=== PATIENT | female | born 1980 | race American Indian/Alaskan Native ===

== ENCOUNTER 2017-01-15 22:28 | Emergency (ER) | payer MEDICAID ==
[2017-01-15 23:24] LABS: Basophils % (Auto) 0.9 % (0.0-1.8); Eosinophils % (Auto) 0.2 % (0.0-4.3); Hematocrit 40.9 % (30.3-42.9); Hemoglobin 13.2 gm/dl (10.1-14.3); Mean Corpuscular HGB Conc 32 % (30-34); Mean Corpuscular Volume 71 fl (79-97); Platelet Count 269 K/mm3 (140-440); Red Blood Count 5.75 M/mm3 (3.65-5.03); Red Cell Distribution Width 15.6 % (13.2-15.2); White Blood Count 8.1 K/mm3 (4.5-11.0)
[2017-01-15 23:38] LABS: Mean Corpuscular Hemoglobin 23 pg (28-32)
[2017-01-15 23:43] LABS: Alanine Aminotransferase 11 units/L (7-56); Albumin 4.1 g/dL (3.9-5); Albumin/Globulin Ratio 1.1 %; Alkaline Phosphatase 79 units/L (35-129); Anion Gap 18 mmol/L; BUN/Creatinine Ratio 18.33; Blood Urea Nitrogen 11 mg/dL (7-17); Calcium 9.2 mg/dL (8.4-10.2); Carbon Dioxide 22 mmol/L (22-30); Chloride 98.1 mmol/L (98-107); Glucose 153 mg/dL (65-100); Lipase 19 units/L (13-60); Potassium 3.3 mmol/L (3.6-5.0); Sodium 135 mmol/L (137-145)
[2017-01-15 23:50] LABS: Bacteria,Urine 1+ /HPF (Negative); Bilirubin,Urine NEG (Negative); Blood,Urine MOD (Negative); Ketones,Urine NEG (Negative); Leukocyte Esterase,Urine LG (Negative); Mucus,Urine FEW /HPF; Nitrite,Urine NEG (Negative); Protein,Urine <15 mg/dL mg/dL (Negative); Urobilinogen,Urine < 2.0 mg/dL (<2.0)
[2017-01-16] MEDS ORDERED: MACROBID PO ONE (02:44)
[2017-01-16] MEDS ORDERED: K-DUR PO ONE (02:52)
[2017-01-16] MEDS ORDERED: PERCOCET 5/325 PO ONE (02:52)
[2017-01-16 05:08] VITALS: BP 130/96
--- NOTE | 2017-01-16 05:13 | Ultrasound Report ---
FINAL REPORT EXAM: US PELVIS DUPLEX DOPPLER COMP HISTORY: pelvic pain COMPARISONS: None. FINDINGS: Transabdominal grayscale, color and spectral Doppler ultrasound evaluation of the pelvis Anteverted uterus measures 9.7 x 4.2 x 5.2 cm in. Myometrial echotexture is normal. Slightly heterogeneous endometrium with thickness of approximately 10 millimeters. No free fluid in the pelvis. The ovaries demonstrate an unremarkable sonographic appearance and measure 2.9 x 3 x 2.2 cm on the right and 3.4 x 3 x 3.3 cm on the left. IMPRESSION: Unremarkable pelvic ultrasound.
--- NOTE | 2017-01-16 05:14 | Ultrasound Report ---
FINAL REPORT EXAM: US TRANSVAGINAL HISTORY: pelvic pain COMPARISONS: None. FINDINGS: Transvaginal grayscale, color and spectral Doppler ultrasound evaluation of the pelvis Anteverted uterus measures 9.7 x 4.2 x 5.2 cm in. Myometrial echotexture is normal. Slightly heterogeneous endometrium with thickness of approximately 10 millimeters. No free fluid in the pelvis. The ovaries demonstrate an unremarkable sonographic appearance and measure 2.9 x 3 x 2.2 cm on the right and 3.4 x 3 x 3.3 cm on the left. IMPRESSION: Unremarkable pelvic ultrasound.
--- NOTE | 2017-01-16 05:49 | Emergency Department Report ---
HPI - General Chief Complaint: Abdominal Pain Time Seen by Provider: 01/16/17 02:43 - HPI HPI: This is a 36 year-old female presents to the emergency department with a complaint of a one-week history of some pelvic discomfort, vaginal discharge and some lesions to the inner thigh, labia and above the vagina. She has a past medical history of CVA, migraine headaches, hypertension. She says that she has a previous history of trichomoniasis. She is sexually active and does not always use protection. She has a psychiatric history of bipolar disorder. She has a surgical history of and tubal ligation. Her [facility] D[employer] MANAGER is Dr. Radha Vasquez and her PCP is a Dr. Celeste. She has not seen them regarding her symptoms. No recent travel or sick contacts at home. ED Past Medical Hx - Past Medical History Hx Hypertension: Yes Hx CVA: Yes (2009) Hx Headaches / Migraines: Yes Hx Seizures: Yes Hx Psychiatric Treatment: Yes (BIPOLAR) - Surgical History Hx Cholecystectomy: Yes Additional Surgical History: ,TUBAL LIGATION - Social History Smoking Status: Current Every Day Smoker Substance Use Type: None - Medications Home Medications: Home Medications Medication Instructions Recorded Confirmed Last Taken Type Atenolol [Tenormin] 25 mg PO DAILY #30 tab 11/13/13 04/20/14 04/19/14 Rx Divalproex [Matthew Ortiz] 1,000 mg PO QHS #30 tablet 11/13/13 04/20/14 Rx SUMAtriptan SUCCINATE [Imitrex] 25 mg PO Q6H PRN #30 tab 11/24/13 04/20/1403/30 Rx Cyclobenzaprine [Flexeril 10mg] 10 mg PO TID PRN #20 tablet 04/20/14 Unknown Rx Penicillin Vk [Veetids TAB] 500 mg PO QID #40 tablet 08/14/14 Unknown Rx traMADol [Ultram 50 MG tab] 50 mg PO Q6HR PRN #20 tablet 08/14/14 Unknown Rx Nitrofurantoin [place]/M-Cryst 100 mg PO Q12HR #14 capsule 01/16/17 Unknown Rx [Macrobid CAP] metroNIDAZOLE [Flagyl] 500 mg PO Q12HR #14 tab 01/16/17 Unknown Rx traMADol [Ultram 50 MG tab] 50 mg PO Q6H PRN #8 tablet 01/16/17 Unknown Rx ED Review of Systems ROS: Stated complaint: ABD PAIN Other details as noted in HPI Comment: All other systems reviewed and negative Constitutional: denies: chills, fever Eyes: denies: eye pain, eye discharge, vision change ENT: denies: ear pain, throat pain Respiratory: denies: cough, shortness of breath, wheezing Cardiovascular: denies: chest pain, palpitations Gastrointestinal: denies: diarrhea, constipation Genitourinary: dysuria, discharge Musculoskeletal: denies: joint swelling, arthralgia Skin: denies: rash, lesions Neurological: denies: headache, weakness, paresthesias Physical Exam - Physical Exam Vital Signs: Vital Signs 01/15/17 01/16/17 01/16/17 22:32 02:50 03:50 Temperature 98 F Pulse Rate 85 Respiratory 18 20 18 Rate Blood Pressure 145/89 Blood Pressure [Right] O2 Sat by Pulse 99 Oximetry 01/16/17 05:03 Temperature 98.3 F Pulse Rate 80 Respiratory 20 Rate Blood Pressure Blood Pressure 130/96 [Right] O2 Sat by Pulse 99 Oximetry Physical Exam: GENERAL: The patient is well-developed well-nourished. HENT: Normocephalic. Atraumatic. Patient has moist mucous membranes. EYES: Extraocular motions are intact. Pupils equal reactive to light bilaterally. NECK: Supple. Trachea is midline. CHEST/LUNGS: Clear to auscultation. There is no respiratory distress noted. HEART/CARDIOVASCULAR: Regular. There is no tachycardia. There is no gallop rub or murmur. ABDOMEN: Abdomen is soft, nontender. Patient has normal bowel sounds. There is no abdominal distention. SKIN: Skin is warm and dry. There is a moderate sized papules seen to the left inner thigh. There is a single papule seen to the mons. It possibly could be a condyloma. : There is a very small amount of thin white discharge seen in the vaginal vault. NEURO: The patient is awake, alert, and oriented. The patient is cooperative. The patient has no focal neurologic deficits. The patient has normal speech and gait. MUSCULOSKELETAL: There is no tenderness or deformity. There is no limitation range of motion. There is no evidence of acute injury. ED Course Vital Signs 01/15/17 01/16/17 01/16/17 22:32 02:50 03:50 Temperature 98 F Pulse Rate 85 Respiratory 18 20 18 Rate Blood Pressure 145/89 Blood Pressure [Right] O2 Sat by Pulse 99 Oximetry 01/16/17 05:03 Temperature 98.3 F Pulse Rate 80 Respiratory 20 Rate Blood Pressure Blood Pressure 130/96 [Right] O2 Sat by Pulse 99 Oximetry ED Medical Decision Making - Lab Data Result diagrams: 01/15/17 23:06 01/15/17 23:06 - Radiology Data Radiology results: report reviewed EXAM: US TRANSVAGINAL HISTORY: pelvic pain COMPARISONS: None. FINDINGS: Transvaginal grayscale, color and spectral Doppler ultrasound evaluation of the pelvis Anteverted uterus measures 9.7 x 4.2 x 5.2 cm in. Myometrial echotexture is normal. Slightly heterogeneous endometrium with thickness of approximately 10 millimeters. No free fluid in the pelvis. The ovaries demonstrate an unremarkable sonographic appearance and measure 2.9 x 3 x 2.2 cm on the right and 3.4 x 3 x 3.3 cm on the left. IMPRESSION: Unremarkable pelvic ultrasound. - Medical Decision Making This is a 36-year-old female presents to the emergency department with complaint of some pain in the vagina as well as in the pelvis and some lesions to the inner thigh and around the vagina as well. Physical exam she does not appear to be in any acute distress. Vital signs stable. Pelvic ultrasound does not show any torsion and is a unremarkable pelvic ultrasound. I did see the lesion to the inner thigh and another just above the vagina on the mons that do not appear as any particular obvious rash or condition but there is possibility of condyloma and the patient was encouraged to follow up with the OB /[facility]HA[facility] WORKER as well as her PCP to make sure that it is not something more concerning or malignant. Pelvic exam was done and wet prep was sent that was positive for Trichomonas. The patient also has a significant urinary tract infection. She was treated with Macrobid for that. She was treated with Flagyl for Trichomonas and understands its side effect with alcohol consumption. Otherwise the patient appears safe for discharge home at this time. She will be notified if her gonorrhea and/or chlamydia is positive and will be started on more antibiotics if necessary. She has been encouraged to return to the ER for any worsening of her symptoms or any acute distress. - Differential Diagnosis Trichomonas, UTI, ovarian torsion, ovarian cysts, fibroids, Critical Care Time: No Critical care attestation.: If time is entered above; I have spent that time in minutes in the direct care of this critically ill patient, excluding procedure time. ED Disposition Clinical Impression: Trichomonas vaginalis infection, Vaginal pain, Pelvic pain UTI (urinary tract infection) Qualifiers: Urinary tract infection type: acute cystitis Hematuria presence: without hematuria Qualified Code(s): N30.00 - Acute cystitis without hematuria Disposition: TO HOME OR SELFCARE Is pt being admited?: No Condition: Stable Instructions: Trichomoniasis (ED), Urinary Tract Infection in Women (ED), Abdominal Pain (ED) Additional Instructions: Please follow-up with your primary care physician and [facility]. Return to the emergency Department with any worsening of her symptoms or any acute distress. You have been prescribed a medication that is sedating and therefore should not be taken prior to driving, working, and responsible for children and in no way should be mixed with alcohol of any quantity. The antibiotic that you have been prescribed for your Trichomonas infection is called Flagyl/metronidazole and it has a severe reaction to alcohol. Therefore do not drink any alcohol for up to 3 days after finishing this antibiotic, and especially during the antibiotic, or else she will have severe abdominal pain, nausea, vomiting. Prescriptions: metroNIDAZOLE [Flagyl] 500 mg PO Q12HR #14 tab Nitrofurantoin [place]/M-Cryst [Macrobid CAP] 100 mg PO Q12HR #14 capsule traMADol [Ultram 50 MG tab] 50 mg PO Q6H PRN #8 tablet PRN Reason: Pain Referrals: [facility] [Primary Care Provider] - 3-5 Days [facility] [Provider Group] - 3-5 Days [facility] [Provider Group] - 3-5 Days [facility] [Provider Group] - 3-5 Days Forms: Work/School Release Form(ED) Time of Disposition: 06:46
== END 2017-01-16 07:00 | disposition home or self-care (01) ==
LOC: ED 22:28
DX: A59.01 Trichomonal vulvovaginitis (principal); R10.2 Pelvic and perineal pain; N30.00 Acute cystitis without hematuria; I10 Essential (primary) hypertension; I63.9 Cerebral infarction, unspecified; R56.9 Unspecified convulsions; G43.909 Migraine, unspecified, not intractable, without status migrainosus; F17.200 Nicotine dependence, unspecified, uncomplicated; Z98.890 Other specified postprocedural states
CPT/HCPCS: 36415; 76830; 80053; 81001; 81025; 83690; 85025; 87210; 87591; 93975

== ENCOUNTER 2018-05-03 15:26 | Emergency (ER) | payer MEDICAID ==
[2018-05-03 15:37] VITALS: BP 153/85
[2018-05-03 15:59] LABS: Bacteria,Urine 1+ /HPF (Negative); Bilirubin,Urine NEG (Negative); Blood,Urine NEG (Negative); Color,Urine Straw (Yellow); Protein,Urine <15 mg/dL mg/dL (Negative); Urobilinogen,Urine < 2.0 mg/dL (<2.0)
[2018-05-03 16:04] LABS: HCG Qualitative,Urine Negative (Negative)
--- NOTE | 2018-05-03 17:08 | Emergency Department Report ---
ED Abdominal Pain HPI - General Chief Complaint: Abdominal Pain Stated Complaint: ABD PAIN/DISCHARGE Time Seen by Provider: 05/03/18 17:05 Source: patient, family Mode of arrival: Ambulatory Limitations: No Limitations - History of Present Illness Initial Comments: This is 31-year-old female here reports lower abdominal pain that radiates to her back. Patient also complained of frequent urination and vaginal discharge and she says she thinks she has a STD. She is complaining that she also has pain inside her vagina. She reports nausea. Blood glucose in triage is 152 she is a diabetic. Patient has a history of CVA, diet controlled diabetes, migraine headache, hypertension and she has bipolar disorder and on treatment for this. She has a history of seizure disorder, gallbladder removed, tubal ligation and . She has a physician a history of herpes. Denies any fever or chills. Last menstrual period was 04/16/2018. She is also complaining of lower back pain. Denies any chest pain or shortness of breath. MD Complaint: abdominal pain, other (low back pain) -: Last night Location: suprapubic Radiation: none Migration to: no migration Severity: severe Severity scale (0 -10): 8 Quality: cramping Consistency: constant Improves With: nothing Worsens With: nothing Associated Symptoms: nausea, dysuria, other (urine frequency). denies: vomiting, diarrhea, fever, chills, constipation, hematemesis, hematochezia, melena, hematuria, anorexia, syncope - Related Data LMP Date: 04/16/18 Previous Rx's Medication Instructions Recorded Last Taken Type Atenolol [Tenormin] 25 mg PO DAILY #30 tab 11/13/13 04/19/14 Rx Divalproex [Matthew Ortiz] 1,000 mg PO QHS #30 tablet 11/13/13 04/19/14 Rx SUMAtriptan SUCCINATE [Imitrex] 25 mg PO Q6H PRN #30 tab 11/24/13 03/30/14 Rx Cyclobenzaprine [Flexeril 10mg] 10 mg PO TID PRN #20 tablet 04/20/14 Unknown Rx Penicillin Vk [Veetids TAB] 500 mg PO QID #40 tablet 08/14/14 Unknown Rx traMADol [Ultram 50 MG tab] 50 mg PO Q6HR PRN #20 tablet 08/14/14 Unknown Rx Nitrofurantoin [place]/M-Cryst 100 mg PO Q12HR #14 capsule 01/16/17 Unknown Rx [Macrobid CAP] metroNIDAZOLE [Flagyl] 500 mg PO Q12HR #14 tab 01/16/17 Unknown Rx traMADol [Ultram 50 MG tab] 50 mg PO Q6H PRN #8 tablet 01/16/17 Unknown Rx Doxycycline [Vibramycin CAP] 100 mg PO Q12HR 7 Days #14 capsule 05/03/18 Unknown Rx metroNIDAZOLE [Flagyl] 500 mg PO Q12HR 7 Days #14 tab 05/03/18 Unknown Rx traMADol [Ultram 50 MG tab] 50 mg PO Q6HR PRN #12 tablet 05/03/18 Unknown Rx Allergies Allergy/AdvReac Type Severity Reaction Status Date / Time ibuprofen [From Motrin] Allergy Unknown Verified 04/20/14 21:17 naproxen [From Naprosyn] Allergy Unknown Verified 04/20/14 21:17 NSAIDS (Non-Steroidal AdvReac Unknown Verified 04/20/14 21:17 Anti-Inflamma ED Review of Systems ROS: Stated complaint: ABD PAIN/DISCHARGE Other details as noted in HPI Constitutional: denies: chills, fever ENT: denies: ear pain, throat pain, congestion Respiratory: denies: cough, shortness of breath, wheezing Gastrointestinal: nausea. denies: abdominal pain, vomiting, diarrhea, constipation, hematemesis, melena, hematochezia Genitourinary: dysuria, frequency. denies: urgency, hematuria, discharge, abnormal menses, dyspareunia Musculoskeletal: back pain. denies: joint swelling, arthralgia, myalgia Skin: denies: rash Neurological: denies: headache, weakness, numbness, paresthesias, confusion, abnormal gait, vertigo ED Past Medical Hx - Past Medical History Previous Medical History?: Yes Hx Hypertension: Yes Hx CVA: Yes (2009) Hx Diabetes: Yes (diet controlled) Hx Headaches / Migraines: Yes Hx Seizures: Yes Hx Psychiatric Treatment: Yes (BIPOLAR) - Surgical History Past Surgical History?: Yes Hx Cholecystectomy: Yes Additional Surgical History: ,TUBAL LIGATION - Family History Family history: hypertension - Social History Smoking Status: Current Every Day Smoker Substance Use Type: None - Medications Home Medications: Home Medications Medication Instructions Recorded Confirmed Last Taken Type Atenolol [Tenormin] 25 mg PO DAILY #30 tab 11/13/13 04/20/14 04/19/[address] [[place] Dr] 1,000 mg PO QHS #30 tablet 11/13/13 04/20/14 04/19/14 Rx SUMAtriptan SUCCINATE [Imitrex] 25 mg PO Q6H PRN #30 tab 11/24/13 04/20/14 03/30/14 Rx Cyclobenzaprine [Flexeril 10mg] 10 mg PO TID PRN #20 tablet 04/20/14 Unknown Rx Penicillin Vk [Veetids TAB] 500 mg PO QID #40 tablet 08/14/14 Unknown Rx traMADol [Ultram 50 MG tab] 50 mg PO Q6HR PRN #20 tablet 08/14/14 Unknown Rx Nitrofurantoin [place]/M-Cryst 100 mg PO Q12HR #14 capsule 01/16/17 Unknown Rx [Macrobid CAP] metroNIDAZOLE [Flagyl] 500 mg PO Q12HR #14 tab 01/16/17 Unknown Rx traMADol [Ultram 50 MG tab] 50 mg PO Q6H PRN #8 tablet 01/16/17 Unknown Rx Doxycycline [Vibramycin CAP] 100 mg PO Q12HR 7 Days #14 capsule 05/03/18 Unknown Rx metroNIDAZOLE [Flagyl] 500 mg PO Q12HR 7 Days #14 tab 05/03/18 Unknown Rx traMADol [Ultram 50 MG tab] 50 mg PO Q6HR PRN #12 tablet 05/03/18 Unknown Rx ED Physical Exam - General Limitations: No Limitations General appearance: alert, in no apparent distress - Head Head exam: Present: atraumatic, normocephalic, normal inspection, other (No cce. + 2 pulses in all extremities, no neurovascular compromise) - Eye Eye exam: Present: normal appearance, PERRL, EOMI Pupils: Present: normal accommodation - ENT ENT exam: Present: normal exam, normal orophraynx, mucous membranes moist - Neck Neck exam: Present: normal inspection, full ROM. Absent: tenderness, lymphadenopathy - Respiratory Respiratory exam: Present: normal lung sounds bilaterally. Absent: respiratory distress, chest wall tenderness - Cardiovascular Cardiovascular Exam: Present: regular rate, normal rhythm, normal heart sounds - GI/Abdominal GI/Abdominal exam: Present: soft, tenderness (mild suprapubic tenderness), normal bowel sounds. Absent: distended, guarding, rebound, rigid, organomegaly, mass, bruit, pulsatile mass - External exam: Present: normal external exam. Absent: erythema, swelling, lesions, lacerations, ecchymosis, bleeding Speculum exam: Present: erythema, vaginal discharge, cervical discharge, other (erosive cervix). Absent: normal speculum exam, vaginal bleeding, foreign body, tissue, laceration Bi-manual exam: Present: cervical motion tendernes. Absent: adnexal tenderness, adnexal mass, uterine enlargement, uterine tenderness - Expanded Exam Expanded Female exam: Absent: vaginal laceration, tissue present in vagina, herpetic lesions, vulvar erythema, vulvar tenderness, foreign body External exam: Absent: normal Speculum exam: Present: cervical OS closed, vaginal discharge - Extremities Exam Extremities exam: Present: normal inspection, full ROM, other (No cce. + 2 pulses in all extremities, no neurovascular compromise). Absent: tenderness, normal capillary refill, pedal edema, joint swelling, calf tenderness - Back Exam Back exam: Present: normal inspection, full ROM, other (ambulates without any difficulties). Absent: tenderness, CVA tenderness (R), CVA tenderness (L), mu scle spasm, rash noted - Neurological Exam Neurological exam: Present: alert, oriented X3, normal gait, reflexes normal. Absent: motor sensory deficit - Psychiatric Psychiatric exam: Present: normal affect, normal mood - Skin Skin exam: Present: warm, dry, intact, normal color. Absent: rash ED Course Vital Signs 05/03/18 15:33 Temperature 98.5 F Pulse Rate 85 Respiratory 16 Rate Blood Pressure 153/85 O2 Sat by Pulse 99 Oximetry - Reevaluation(s) Reevaluation #1: 05/03/18 19:43 Patient received 1 L of normal saline in the emergency room, morphine 4 mg IV and Zofran 8 mg IV with relief of pain. She still complains of pelvic discomfort. Exam done and she is positive CMT. Patient up to be treated for gonorrhea and chlamydia due to erosive cervix. She was ordered medication to treat STD'S and was started on Levaquin by mouth for symptomatic bacteriuria. Still awaiting results and wet prep. Potassium 3.3 and she was given potassium 40 mEq by mouth and also started on doxycycline for PID. Reevaluation #2: 05/03/18 20:28 Patient with less than 20% clue cell, negative trichomoniasis and negative yeast. Gonorrhea and chlamydia pending. She had no adverse reaction from medication given ED Medical Decision Making - Lab Data Result diagrams: 05/03/18 17:18 05/03/18 17:18 Lab Results 05/03/18 05/03/18 05/03/18 Range/Units 15:38 15:46 17:18 WBC 5.7 (4.5-11.0) K/mm3 RBC 5.38 H (3.65-5.03) M/mm3 Hgb 13.0 (10.1-14.3) gm/dl Hct 39.4 (30.3-42.9) % MCV 73 L (79-97) fl MCH 24 L (28-32) pg MCHC 33 (30-34) % RDW 15.2 (13.2-15.2) % Plt Count 350 (140-440) K/mm3 Lymph % (Auto) 46.1 H (13.4-35.0) % [place] % (Auto) 4.6 (0.0-7.3) % Eos % (Auto) 0.4 (0.0-4.3) % Baso % (Auto) 0.8 (0.0-1.8) % Lymph # 2.6 (1.2-5.4) K/mm3 [place] # 0.3 (0.0-0.8) K/mm3 Eos # 0.0 (0.0-0.4) K/mm3 Baso # 0.0 (0.0-0.1) K/mm3 Seg Neutrophils % 48.1 (40.0-70.0) % Seg Neutrophils # 2.7 (1.8-7.7) K/mm3 Sodium (137-145) mmol/L Potassium (3.6-5.0) mmol/L Chloride (98-107) mmol/L Carbon Dioxide (22-30) mmol/L Anion Gap mmol/L BUN (7-17) mg/dL Creatinine (0.7-1.2) mg/dL Estimated GFR ml/min BUN/Creatinine Ratio % Glucose (65-100) mg/dL POC Glucose 152 H (70-105) Calcium (8.4-10.2) mg/dL Urine Color Straw (Yellow) Urine Turbidity Clear (Clear) Urine pH 6.0 (5.0-7.0) Ur Specific [place] 1.002 L (1.003-1.030) Urine Protein <15 mg/dl (Negative) mg/dL Urine Glucose (UA) Neg (Negative) mg/dL Urine Ketones Neg (Negative) mg/dL Urine Blood Neg (Negative) Urine Nitrite Neg (Negative) Urine Bilirubin Neg (Negative) Urine Urobilinogen < 2.0 (<2.0) mg/dL Ur Leukocyte Esterase Neg (Negative) Urine WBC (Auto) 1.0 (0.0-6.0) /HPF Urine RBC (Auto) 4.0 (0.0-6.0) /HPF U Epithel Cells (Auto) < 1.0 (0-13.0) /HPF Urine Bacteria (Auto) 1+ (Negative) /HPF Urine HCG, Qual Negative (Negative) 05/03/18 Range/Units 17:18 WBC (4.5-11.0) K/mm3 RBC (3.65-5.03) M/mm3 Hgb (10.1-14.3) gm/dl Hct (30.3-42.9) % MCV (79-97) fl MCH (28-32) pg MCHC (30-34) % RDW (13.2-15.2) % Plt Count (140-440) K/mm3 Lymph % (Auto) (13.4-35.0) % [place] % (Auto) (0.0-7.3) % Eos % (Auto) (0.0-4.3) % Baso % (Auto) (0.0-1.8) % Lymph # (1.2-5.4) K/mm3 [place] # (0.0-0.8) K/mm3 Eos # (0.0-0.4) K/mm3 Baso # (0.0-0.1) K/mm3 Seg Neutrophils % (40.0-70.0) % Seg Neutrophils # (1.8-7.7) K/mm3 Sodium 139 (137-145) mmol/L Potassium 3.3 L (3.6-5.0) mmol/L Chloride 101.4 (98-107) mmol/L Carbon Dioxide 24 (22-30) mmol/L Anion Gap 17 mmol/L BUN 7 (7-17) mg/dL Creatinine 0.6 L (0.7-1.2) mg/dL Estimated GFR > 60 ml/min BUN/Creatinine Ratio 12 % Glucose 91 (65-100) mg/dL POC Glucose (70-105) Calcium 9.1 (8.4-10.2) mg/dL Urine Color (Yellow) Urine Turbidity (Clear) Urine pH (5.0-7.0) Ur Specific [place] (1.003-1.030) Urine Protein (Negative) mg/dL Urine Glucose (UA) (Negative) mg/dL Urine Ketones (Negative) mg/dL Urine Blood (Negative) Urine Nitrite (Negative) Urine Bilirubin (Negative) Urine Urobilinogen (<2.0) mg/dL Ur Leukocyte Esterase (Negative) Urine WBC (Auto) (0.0-6.0) /HPF Urine RBC (Auto) (0.0-6.0) /HPF U Epithel Cells (Auto) (0-13.0) /HPF Urine Bacteria (Auto) (Negative) /HPF Urine HCG, Qual (Negative) Urine culture pending - Medical Decision Making This is a 38-year-old female here with pelvic pain, urinary frequency and dysuria, vaginal discharge thinking that she got STD from her . She is also complaining of internal vaginal pain. Wet prep shows some 20% clue cell, negative trichomoniasis and negative yeast. CHL pending. Patient is a diabetic and she is having frequent urination but her blood glucose is 91 on BMP and fingerstick is 152. Pelvic exam done and patient with erosive cervix with cervical motion tenderness without any evident adnexal tenderness. Patient chose to be treated empirically for gonorrhea and chlamydia which was already sent. I discussed the patient her laboratory results, test results and diagnosis along with treatment plan. She was given Rocephin 50 mg IM, Zithromax 1 g by mouth, doxycycline 100 mg by mouth in emergency room. Patient was given 1 L normal saline, 4 mg of morphine IV and 8 mg Zofran IV. She has no pain at present. Vital signs are stable she is afebrile. I encouraged her to l et her know that she was treated for STD emergency room and he will need to be tested and treated. Patient also has symptomatic bacteriuria. She was given Levaquin 500 mg by mouth and will be started on Cipro for 5 days. She was understanding that she needs to follow up with [facility] and primary care doctor which she says she has one but she could not tell me the name so I will refer her to [facility] and Dr. Erendira Mckinley, [facility]. She discharged home with her family in stable condition. - Differential Diagnosis diabetes, PID, STD, UTI, Critical care attestation.: If time is entered above; I have spent that time in minutes in the direct care of this critically ill patient, excluding procedure time. ED Disposition Clinical Impression: PID (acute pelvic inflammatory disease), Cervicitis with erosion, Vaginal pain, Bacteriuria, Dysuria, Bacterial vaginosis, Vaginal discharge Abdominal pain Qualifiers: Abdominal location: lower abdomen, unspecified Qualified Code(s): R10.30 - Lower abdominal pain, unspecified Disposition: - TO HOME OR SELFCARE Is pt being admited?: No Does the pt Need Aspirin: No Condition: Stable Instructions: Pelvic Inflammatory Disease (ED), Bacterial Vaginosis (ED), Cervicitis (ED), Urinary Tract Infection in Women (ED), Dysuria (ED), Abdominal Pain (ED) Additional Instructions: Increased fluid intake Follow up with your primary care doctor and if you do not have a primary care doctor follow-up with outside Medical Center in 2-3 days Follow-up with [facility] in 2-3 days regarding pelvic inflammatory disease. Take medication as prescribed but please do not drive or operated heavy machinery while taking Ultram with this medication causes drowsiness. Please do not drink any alcohol while taking Flagyl for bacterial vaginosis as this medication can have a negative interaction with Flagyl and cause nausea and vomiting Practice safe sex and your now that he needs to be checked for STD because you are treated for STD due to vaginal discharge today. Please refrain for having sexual activity for the next 3 weeks. Prescriptions: Doxycycline [Vibramycin CAP] 100 mg PO Q12HR 7 Days #14 capsule metroNIDAZOLE [Flagyl] 500 mg PO Q12HR 7 Days #14 tab traMADol [Ultram 50 MG tab] 50 mg PO Q6HR PRN #12 tablet PRN Reason: Pain Referrals: PRIMARY CARE, [Primary Care Provider] - 2-3 Days [facility] [Outside] - 2-3 Days [facility] MCKINLEY [Staff Physician] - 2-3 Days Forms: STI Treatment and Prevention, Work/School Release Form(ED)
[2018-05-03 17:35] LABS: Basophils % (Auto) 0.8 % (0.0-1.8); Eosinophils % (Auto) 0.4 % (0.0-4.3); Hematocrit 39.4 % (30.3-42.9); Lymphocytes # (Auto) 2.6 K/mm3 (1.2-5.4); Lymphocytes % (Auto) 46.1 % (13.4-35.0); Mean Corpuscular HGB Conc 33 % (30-34); Mean Corpuscular Volume 73 fl (79-97); Monocytes # (Auto) 0.3 K/mm3 (0.0-0.8); Monocytes % (Auto) 4.6 % (0.0-7.3); Platelet Count 350 K/mm3 (140-440); Red Blood Count 5.38 M/mm3 (3.65-5.03); Red Cell Distribution Width 15.2 % (13.2-15.2)
[2018-05-03] MEDS ORDERED: NACL 0.9% 1000 ML 1,000 ML IV ONE (17:36)
[2018-05-03] MEDS ORDERED: ZOFRAN IV ONE (17:36)
[2018-05-03] MEDS ORDERED: MORPHINE IV ONE (17:36)
[2018-05-03 17:44] LABS: BUN/Creatinine Ratio 12; Blood Urea Nitrogen 7 mg/dL (7-17); Calcium 9.1 mg/dL (8.4-10.2); Hemolysis Index 3
[2018-05-03] MEDS ORDERED: LEVAQUIN PO ONE (19:21)
[2018-05-03] MEDS ORDERED: ROCEPHIN IM ONE (19:21)
[2018-05-03] MEDS ORDERED: ZITHROMAX PO ONE (19:21)
[2018-05-03] MEDS ORDERED: XYLOCAINE 1% MPF 5 mL INFILTRATI ONE (19:22)
[2018-05-03] MEDS ORDERED: K-DUR PO ONE (19:42)
== END 2018-05-03 21:09 | disposition home or self-care (01) ==
LOC: ED 15:26
DX: N73.0 Acute parametritis and pelvic cellulitis (principal); N72 Inflammatory disease of cervix uteri; R82.71 Bacteriuria; N76.0 Acute vaginitis; I10 Essential (primary) hypertension; E11.65 Type 2 diabetes mellitus with hyperglycemia; G43.909 Migraine, unspecified, not intractable, without status migrainosus; F31.9 Bipolar disorder, unspecified; F17.200 Nicotine dependence, unspecified, uncomplicated; Z88.6 Allergy status to analgesic agent
CPT/HCPCS: 36415; 80048; 81001; 81025; 82962; 85025; 87086; 87210; 87591; 96361; 96372; 96374; 96375; 99284; J0696; J2270; J2405; J7030

== ENCOUNTER 2019-07-01 15:11 | Emergency (ER) | payer MEDICAID ==
[2019-07-01 16:42] VITALS: BP 136/80
--- NOTE | 2019-07-01 16:45 | Emergency Department Report ---
Blank Doc - Documentation Documentation: 39-year-old female that presents with vaginal discahrge and urinary symptoms. This initial assessment/diagnostic orders/clinical plan/treatment(s) is/are subject to change based on patient's health status, clinical progression and re- assessment by fellow clinical providers in the ED. Further treatment and workup at subsequent clinical providers discretion. Patient/guardians urged not to elope from the ED as their condition may be serious if not clinically assessed and managed. Initial orders include: 1- Patient sent to [facility] for further evaluation and treatment 2- UA 3- pelvic exam to be done
[2019-07-01 18:53] LABS: Bacteria,Urine 1+ /HPF (Negative); Bilirubin,Urine NEG (Negative); Blood,Urine SM (Negative); Color,Urine Yellow (Yellow); HCG Qualitative,Urine Negative (Negative); Protein,Urine <15 mg/dL mg/dL (Negative); Urobilinogen,Urine < 2.0 mg/dL (<2.0)
[2019-07-01] MEDS ORDERED: traMADol 50 MG TAB PO ONE (19:21)
--- NOTE | 2019-07-01 20:02 | Emergency Department Report ---
ED Female HPI - General Chief complaint: Urogenital-Female Stated complaint: CANT URINATE Time Seen by Provider: 07/01/19 16:43 Source: patient Mode of arrival: Ambulatory Limitations: No Limitations - History of Present Illness Initial comments: Patient is a 39-year-old female presents emergency room with complaints of pelvic discomfort described as a pressure. She has associated urinary frequency, dysuria, vaginal discharge. She states that the discharge is thick and white. She denies any abdominal pain, fever, chills, vomiting, diarrhea. S he states that she is sexually active only with her and does not use protection. She has a past medical history of bipolar, panic attacks, CVA. She states that she has an allergy to NSAIDs. Last menstrual cycle June 23. - Related Data Previous Rx's Medication Instructions Recorded Last Taken Type Divalproex Dr [Depakote Dr] 1,000 mg PO QHS #30 tablet 11/13/13 04/19/14 Rx atenoloL [Tenormin] 25 mg PO DAILY #30 tab 11/13/13 04/19/14 Rx SUMAtriptan SUCCINATE [Imitrex] 25 mg PO Q6H PRN #30 tab 11/24/13 03/30/14 Rx Cyclobenzaprine [Flexeril 10mg] 10 mg PO TID PRN #20 tablet 04/20/14 Unknown Rx Penicillin Vk [Veetids TAB] 500 mg PO QID #40 tablet 08/14/14 Unknown Rx traMADoL [Ultram 50 MG tab] 50 mg PO Q6HR PRN #20 tablet 08/14/14 Unknown Rx Nitrofurantoin [place]/M-Cryst 100 mg PO Q12HR #14 capsule 01/16/17 Unknown Rx [Macrobid CAP] metroNIDAZOLE [Flagyl] 500 mg PO Q12HR #14 tab 01/16/17 Unknown Rx traMADoL [Ultram 50 MG tab] 50 mg PO Q6H PRN #8 tablet 01/16/17 Unknown Rx DOXYCYCLINE Hyclate [Vibramycin 100 mg PO Q12HR 7 Days #14 capsule 05/03/18 Unknown Rx CAP] metroNIDAZOLE [Flagyl] 500 mg PO Q12HR 7 Days #14 tab 05/03/18 Unknown Rx traMADoL [Ultram 50 MG tab] 50 mg PO Q6HR PRN #12 tablet 05/03/18 Unknown Rx Allergies Allergy/AdvReac Type Severity Reaction Status Date / Time ibuprofen [From Motrin] Allergy Unknown Verified 04/20/14 21:17 naproxen [From Naprosyn] Allergy Unknown Verified 04/20/14 21:17 NSAIDS (Non-Steroidal AdvReac Unknown Verified 04/20/14 21:17 Anti-Inflamma ED Review of Systems ROS: Stated complaint: CANT URINATE Other details as noted in HPI Comment: All other systems reviewed and negative ED Past Medical Hx - Past Medical History Hx Hypertension: Yes Hx CVA: Yes (2009) Hx Diabetes: Yes (diet controlled) Hx Headaches / Migraines: Yes Hx Seizures: Yes Hx Psychiatric Treatment: Yes (BIPOLAR) - Surgical History Hx Cholecystectomy: Yes Additional Surgical History: ,TUBAL LIGATION - Social History Smoking Status: Current Every Day Smoker Substance Use Type: None - Medications Home Medications: Home Medications Medication Instructions Recorded Confirmed Last Taken Type Divalproex [Matthew Ortiz] 1,000 mg PO QHS #30 tablet 11/13/13 04/20/14 04/19/14 Rx atenoloL [Tenormin] 25 mg PO DAILY #30 tab 11/13/13 04/20/14 04/19/14 Rx SUMAtriptan SUCCINATE [Imitrex] 25 mg PO Q6H PRN #30 tab 11/24/13 04/20/14 03/30/14 Rx Cyclobenzaprine [Flexeril 10mg] 10 mg PO TID PRN #20 tablet 04/20/14 Unknown Rx Penicillin Vk [Veetids TAB] 500 mg PO QID #40 tablet 08/14/14 Unknown Rx traMADoL [Ultram 50 MG tab] 50 mg PO Q6HR PRN #20 tablet 08/14/14 Unknown Rx Nitrofurantoin [place]/M-Cryst 100 mg PO Q12HR #14 capsule 01/16/17 Unknown Rx [Macrobid CAP] metroNIDAZOLE [Flagyl] 500 mg PO Q12HR #14 tab 01/16/17 Unknown Rx traMADoL [Ultram 50 MG tab] 50 mg PO Q6H PRN #8 tablet 01/16/17 Unknown Rx DOXYCYCLINE Hyclate [Vibramycin 100 mg PO Q12HR 7 Days #14 capsule 05/03/18 Unknown Rx CAP] metroNIDAZOLE [Flagyl] 500 mg PO Q12HR 7 Days #14 tab 05/03/18 Unknown Rx traMADoL [Ultram 50 MG tab] 50 mg PO Q6HR PRN #12 tablet 05/03/18 Unknown Rx ED Physical Exam - General Limitations: No Limitations General appearance: alert, in no apparent distress - Head Head exam: Present: atraumatic, normocephalic - Eye Eye exam: Present: normal appearance - ENT ENT exam: Present: mucous membranes moist - Respiratory Respiratory exam: Present: normal lung sounds bilaterally. Absent: respiratory distress, wheezes, rales, rhonchi, stridor, chest wall tenderness, accessory muscle use, decreased breath sounds, prolonged expiratory - Cardiovascular Cardiovascular Exam: Present: regular rate, normal rhythm, normal heart sounds. Absent: systolic murmur, diastolic murmur, rubs, gallop - GI/Abdominal GI/Abdominal exam: Present: soft, normal bowel sounds. Absent: distended, tenderness, guarding, rebound, rigid - External exam: Present: normal external exam. Absent: erythema, swelling, lesions, lacerations, ecchymosis, bleeding Speculum exam: Present: vaginal discharge (white/yellow), cervical discharge (white/yellow), other (plumber's assistant: fallon, EMT). Absent: erythema, vaginal bleeding, foreign body, tissue, laceration Bi-manual exam: Present: normal bi-manual exam. Absent: cervical motion tendernes, adnexal tenderness, adnexal mass - Back Exam Back exam: Absent: CVA tenderness (R), CVA tenderness (L) - Neurological Exam Neurological exam: Present: alert, oriented X3 - Psychiatric Psychiatric exam: Present: normal affect, normal mood - Skin Skin exam: Present: warm, dry, intact ED Course Vital Signs 07/01/19 07/01/19 16:39 21:51 Temperature 98.8 F Pulse Rate 90 93 H Respiratory 20 17 Rate Blood Pressure 136/80 O2 Sat by Pulse 98 99 Oximetry ED Medical Decision Making - Lab Data Lab Results 07/01/19 Range/Units Unknown Urine Color Yellow (Yellow) Urine Turbidity Slightly-cloudy (Clear) Urine pH 5.0 (5.0-7.0) Ur Specific [place] 1.019 (1.003-1.030) Urine Protein <15 mg/dl (Negative) mg/dL Urine Glucose (UA) Neg (Negative) mg/dL Urine Ketones Neg (Negative) mg/dL Urine Blood Sm (Negative) Urine Nitrite Neg (Negative) Urine Bilirubin Neg (Negative) Urine Urobilinogen < 2.0 (<2.0) mg/dL Ur Leukocyte Esterase Neg (Negative) Urine WBC (Auto) 1.0 (0.0-6.0) /HPF Urine RBC (Auto) 3.0 (0.0-6.0) /HPF U Epithel Cells (Auto) 9.0 (0-13.0) /HPF Urine Bacteria (Auto) 1+ (Negative) /HPF Urine HCG, Qual Negative (Negative) - Medical Decision Making Patient is a 39-year-old female presents emergency room with complaints of pelvic discomfort described as a pressure. She has associated urinary frequency, dysuria, vaginal discharge. She states that the discharge is thick and white. She denies any abdominal pain, fever, chills, vomiting, diarrhea. She states that she is sexually active only with her and does not use protection. She has a past medical history of bipolar, panic attacks, CVA. She states that she has an allergy to NSAIDs. Last menstrual cycle June 23. vitals are normal. on exam: white/yellow cervical/vaginal discharge, no CMT, no adnexal tenderness or masses, plumber's assistant: Fallon, EMT, no abdominal tenderness palpation. does not have clinical s/sx of PID. UA without signs of UTI. Urine is negative. Wet prep is negative. G/C swab sent. Patient states that she would like to be prophylactically treated for G/C. Patient given azithromycin and ceftriaxone. Patient will be referred to an [facility] for further evaluation and management, discussed the importance of patient following up, patient verbalized understanding. advised pt Please follow up with an [facility] TESTER. 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 Please follow-up with the SEED TESTER for full STD panel. Please have any partner tested and treated as well. Avoid sexual intercourse for 10 days. Return to the emergency room for any new or worsening symptoms. - Differential Diagnosis UTI, G/C, vaginitis, BV, yeast, STD, PID Critical care attestation.: If time is entered above; I have spent that time in minutes in the direct care of this critically ill patient, excluding procedure time. ED Disposition Clinical Impression: Pelvic pain, Dysuria, Vaginal discharge Disposition: TO HOME OR SELFCARE Is pt being admited?: No Does the pt Need Aspirin: No Condition: Stable Instructions: Vaginitis (ED), Dysuria (ED) Additional Instructions: Please follow up with an SEED TESTER. 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 Please follow-up with the SEED TESTER for full STD panel. Please have any partner tested and treated as well. Avoid sexual intercourse for 10 days. Return to the emergency room for any new or worsening symptoms. Referrals: PETROS GUERRERO MD [Staff Physician] - 2-3 Days [facility] [Provider Group] - 2-3 Days Time of Disposition: 21:41 Print Language: LIBERIAN
[2019-07-01] MEDS ORDERED: AZITHROMYCIN 1 GM ORAL PWDR PACKET PO ONE (20:57)
[2019-07-01] MEDS ORDERED: LIDOCAINE-MPF (1%) 10 MG/1 ML VIAL 5 ML INFILTRATI ONE (20:57)
== END 2019-07-01 21:51 | disposition home or self-care (01) ==
LOC: ED 15:11
DX: R35.0 Frequency of micturition (principal); R30.0 Dysuria; R10.2 Pelvic and perineal pain; I10 Essential (primary) hypertension; E11.9 Type 2 diabetes mellitus without complications; G43.909 Migraine, unspecified, not intractable, without status migrainosus; R56.9 Unspecified convulsions; F31.9 Bipolar disorder, unspecified; F17.200 Nicotine dependence, unspecified, uncomplicated; Z98.890 Other specified postprocedural states; Z98.51 Tubal ligation status; Z79.899 Other long term (current) drug therapy
CPT/HCPCS: 81001; 81025; 87086; 87210; 87591; 96372; 99284; J0696

== ENCOUNTER 2019-09-26 14:15 | Emergency (ER) | payer MEDICAID ==
[2019-09-26 15:00] LABS: Basophils % (Auto) 0.4 % (0.0-1.8); Eosinophils # (Auto) 0.1 K/mm3 (0.0-0.4); Hematocrit 35.3 % (30.3-42.9); Hemoglobin 11.3 gm/dl (10.1-14.3); Lymphocytes # (Auto) 2.5 K/mm3 (1.2-5.4); Lymphocytes % (Auto) 30.3 % (13.4-35.0); Mean Corpuscular HGB Conc 32 % (30-34); Mean Corpuscular Volume 75 fl (79-97); Monocytes # (Auto) 0.5 K/mm3 (0.0-0.8); Monocytes % (Auto) 6.1 % (0.0-7.3); Platelet Count 240 K/mm3 (140-440); Red Cell Distribution Width 15.8 % (13.2-15.2)
[2019-09-26] MEDS ORDERED: MORPHINE 4 MG/1 ML INJ IV ONE (15:12)
[2019-09-26] MEDS ORDERED: ONDANSETRON 4 MG/2 ML INJ IV ONE (15:12)
[2019-09-26 15:20] LABS: Alanine Aminotransferase 14 units/L (7-56); Albumin 3.5 g/dL (3.9-5); BUN/Creatinine Ratio 17; Blood Urea Nitrogen 10 mg/dL (7-17); Hemolysis Index 5
[2019-09-26] MEDS ORDERED: SODIUM CHLORIDE 0.9% 1000 ML 1,000 ML IV ONE (15:26)
--- NOTE | 2019-09-26 15:39 | Emergency Department Report ---
Blank Doc - Documentation Documentation: This is a 39-year-old female that presents with bilateral leg swelling, abdomi nal pain with distention, chest pain and shortness of breath. Patient does have history of of irregular heartbeats. Patient stated pain does not radiate anywhere. Patient denies following up with a lead investigator. ST elevation seen in V2. Dr. Anaya lead investigator has been consulted and images has been sent of EKG. A repeat EKG is ordered. Cardiac work-up has been ordered. Patient sent to the main ED for further evaluation and treatment.
[2019-09-26 16:02] LABS: Bilirubin,Urine NEG (Negative); Blood,Urine LG (Negative); Color,Urine Yellow (Yellow); HCG Qualitative,Urine Negative (Negative); Mucus,Urine FEW /HPF; Protein,Urine <15 mg/dL mg/dL (Negative); Urobilinogen,Urine < 2.0 mg/dL (<2.0)
[2019-09-26 16:03] LABS: RBC,Urine > 182.0 /HPF (0.0-6.0)
[2019-09-26 16:07] LABS: INR 1.01 (0.87-1.13)
[2019-09-26 16:08] LABS: Partial Thromboplastin Time 28.3 Sec. (24.2-36.6)
--- NOTE | 2019-09-26 16:53 | Emergency Department Report ---
ED General Adult HPI - General Chief complaint: Pain General Stated complaint: FINGER AND HANDS SWOLLENING Time Seen by Provider: 09/26/19 15:01 Source: patient Mode of arrival: Ambulatory Limitations: No Limitations - History of Present Illness Initial comments: Ms. Moore is a 39-year-old female that presents with bilateral leg swelling, abdominal pain with distention, chest pain and shortness of breath. Patient does have history of of irregular heartbeats. Patient stated pain does not radiate anywhere. Patient denies following up with a software developer mid level. ST elevation seen in V2. Dr. Anaya software developer mid level has been consulted and images has been sent of EKG. Dr. Anaya is stated that patient does not have STEMI. Severity scale (0 -10): 0 - Related Data Previous Rx's Medication Instructions Recorded Last Taken Type Divalproex [Joleneakosandra Ortiz] 1,000 mg PO QHS #30 tablet 11/13/13 04/19/14 Rx atenoloL [Tenormin] 25 mg PO DAILY #30 tab 11/13/13 04/19/14 Rx SUMAtriptan SUCCINATE [Imitrex] 25 mg PO Q6H PRN #30 tab 11/24/13 03/30/14 Rx Cyclobenzaprine [Flexeril 10mg] 10 mg PO TID PRN #20 tablet 04/20/14 Unknown Rx Penicillin Vk [Veetids TAB] 500 mg PO QID #40 tablet 08/14/14 Unknown Rx traMADoL [Ultram 50 MG tab] 50 mg PO Q6HR PRN #20 tablet 08/14/14 Unknown Rx Nitrofurantoin [place]/M-Cryst 100 mg PO Q12HR #14 capsule 01/16/17 Unknown Rx [Macrobid CAP] metroNIDAZOLE [Flagyl] 500 mg PO Q12HR #14 tab 01/16/17 Unknown Rx traMADoL [Ultram 50 MG tab] 50 mg PO Q6H PRN #8 tablet 01/16/17 Unknown Rx DOXYCYCLINE Hyclate [Vibramycin 100 mg PO Q12HR 7 Days #14 capsule 05/03/18 Unknown Rx CAP] metroNIDAZOLE [Flagyl] 500 mg PO Q12HR 7 Days #14 tab 05/03/18 Unknown Rx traMADoL [Ultram 50 MG tab] 50 mg PO Q6HR PRN #12 tablet 05/03/18 Unknown Rx Allergies Allergy/AdvReac Type Severity Reaction Status Date / Time ibuprofen [From Motrin] Allergy Unknown Verified 04/20/14 21:17 naproxen [From Naprosyn] Allergy Unknown Verified 04/20/14 21:17 NSAIDS (Non-Steroidal AdvReac Unknown Verified 04/20/14 21:17 Anti-Inflamma ED Review of Systems ROS: Stated complaint: FINGER AND HANDS SWOLLENING Other details as noted in HPI Comment: All other systems reviewed and negative Constitutional: denies: chills, fever Gastrointestinal: abdominal pain. denies: nausea, vomiting ED Past Medical Hx - Past Medical History Previous Medical History?: Yes Hx Hypertension: Yes Hx CVA: Yes (2009) Hx Diabetes: Yes (diet controlled) Hx Headaches / Migraines: Yes Hx Seizures: Yes Hx Psychiatric Treatment: Yes (BIPOLAR) - Surgical History Past Surgical History?: Yes Hx Cholecystectomy: Yes Additional Surgical History: ,TUBAL LIGATION - Social History Smoking Status: Current Every Day Smoker Substance Use Type: Alcohol - Medications Home Medications: Home Medications Medication Instructions Recorded Confirmed Last Taken Type Divalproex [Matthew Ortiz] 1,000 mg PO QHS #30 tablet 11/13/13 04/20/14 04/19/14 Rx atenoloL [Tenormin] 25 mg PO DAILY #30 tab 11/13/13 04/20/14 04/19/14 Rx SUMAtriptan SUCCINATE [Imitrex] 25 mg PO Q6H PRN #30 tab 11/24/13 04/20/14 03/30/14 Rx Cyclobenzaprine [Flexeril 10mg] 10 mg PO TID PRN #20 tablet 04/20/14 Unknown Rx Penicillin Vk [Veetids TAB] 500 mg PO QID #40 tablet 08/14/14 Unknown Rx traMADoL [Ultram 50 MG tab] 50 mg PO Q6HR PRN #20 tablet 08/14/14 Unknown Rx Nitrofurantoin [place]/M-Cryst 100 mg PO Q12HR #14 capsule 01/16/17 Unknown Rx [Macrobid CAP] metroNIDAZOLE [Flagyl] 500 mg PO Q12HR #14 tab 01/16/17 Unknown Rx traMADoL [Ultram 50 MG tab] 50 mg PO Q6H PRN #8 tablet 01/16/17 Unknown Rx DOXYCYCLINE Hyclate [Vibramycin 100 mg PO Q12HR 7 Days #14 capsule 01/13/19 Unknown Rx CAP] metroNIDAZOLE [Flagyl] 500 mg PO Q12HR 7 Days #14 tab 05/03/18 Unknown Rx traMADoL [Ultram 50 MG tab] 50 mg PO Q6HR PRN #12 tablet 05/03/18 Unknown Rx ED Physical Exam - General Limitations: No Limitations - Head Head exam: Present: atraumatic, normocephalic, normal inspection - Eye Eye exam: Present: normal appearance - ENT ENT exam: Present: normal exam, normal orophraynx, mucous membranes moist - Neck Neck exam: Present: normal inspection, full ROM. Absent: tenderness, meningismus - Respiratory Respiratory exam: Present: normal lung sounds bilaterally - Cardiovascular Cardiovascular Exam: Present: regular rate, normal rhythm, normal heart sounds - GI/Abdominal GI/Abdominal exam: Present: soft, normal bowel sounds. Absent: distended, tenderness, guarding, rebound, rigid, organomegaly, pulsatile mass, hernia - Extremities Exam Extremities exam: Present: normal inspection, full ROM, normal capillary refill. Absent: pedal edema, calf tenderness - Back Exam Back exam: Present: normal inspection, full ROM. Absent: CVA tenderness (R), CVA tenderness (L) - Neurological Exam Neurological exam: Present: alert, oriented X3, CN II-XII intact, normal gait, reflexes normal - Psychiatric Psychiatric exam: Present: normal mood - Skin Skin exam: Present: warm, intact, normal color ED Course Vital Signs 09/26/19 09/26/19 09/26/19 14:19 16:02 16:45 Temperature 99 F Pulse Rate 93 H 65 81 Respiratory 18 16 16 Rate Blood Pressure 140/82 Blood Pressure 124/63 124/63 [Left] O2 Sat by Pulse 98 97 95 Oximetry ED Medical Decision Making - Lab Data Result diagrams: 09/26/19 14:49 09/26/19 14:49 - EKG Data -: EKG Interpreted by Me EKG shows normal: sinus rhythm Rate: normal - Radiology Data Radiology results: report reviewed - Medical Decision Making Ms. Moore is a 39-year-old female that presents with bilateral leg swelling, abdominal pain with distention, chest pain and shortness of breath. Patient does have history of of irregular heartbeats. Patient stated pain does not radiate anywhere. Patient denies following up with a software developer mid level. ST elevation seen in V2. Dr. Anaya software developer mid level has been consulted and images has been sent of EKG. Dr. Anaya is stated that patient does not have STEMI. Patient received morphine and Zofran. Patient stated that she is feeling much better. Patient have a peripheral edema. Patient given Lasix 20 mg IV in the ER and prescription for Lasix. Patient mentioned that she has palpitation from time to time. I gave her [facility] follow-up with in the next 2 to 3 days. Patient labs reviewed and is unremarkable. CT abdomen and pelvis is negative for acute finding patient also advised to return to the ER if she develop any new symptoms. Critical care attestation.: If time is entered above; I have spent that time in minutes in the direct care of this critically ill patient, excluding procedure time. ED Disposition Clinical Impression: Abdominal pain, Leg edema Disposition: DC-01 TO HOME OR SELFCARE Is pt being admited?: No Condition: Stable Instructions: Leg Edema (ED), Abdominal Pain (ED), Palpitations (ED) Referrals: PRIMARY CAREMD [Primary Care Provider] - 3-5 Days [facility] [Provider Group] - 3-5 Days
[2019-09-26] MEDS ORDERED: FUROSEMIDE 40 MG/4 ML INJ IV ONE (17:22)
[2019-09-26] MEDS ORDERED: HYDROGEN PEROXIDE 118 ML SOLUTION TP ONE (17:42)
[2019-09-26] MEDS ORDERED: HYDROGEN PEROXIDE 118 ML SOLUTION ONE (17:42)
[2019-09-26 17:58] VITALS: BP 124/63
== END 2019-09-26 17:43 | disposition home or self-care (01) ==
LOC: ED 14:15
DX: R10.9 Unspecified abdominal pain (principal); R60.0 Localized edema; I10 Essential (primary) hypertension; E11.9 Type 2 diabetes mellitus without complications; G43.909 Migraine, unspecified, not intractable, without status migrainosus; R56.9 Unspecified convulsions; F31.9 Bipolar disorder, unspecified; F17.200 Nicotine dependence, unspecified, uncomplicated; Z90.49 Acquired absence of other specified parts of digestive tract; Z98.51 Tubal ligation status; Z98.890 Other specified postprocedural states; Z79.2 Long term (current) use of antibiotics; Z79.899 Other long term (current) drug therapy; Z88.8 Allergy status to other drugs, medicaments and biological substances
CPT/HCPCS: 36415; 71046; 74177; 80053; 81001; 81025; 83880; 84484; 85025; 85610; 85730; 87086; 93005; 96374; 99285; J1940; Q9967

== ENCOUNTER 2019-10-17 15:06 | Emergency (ER) | payer MEDICAID ==
[2019-10-17 15:20] VITALS: BP 144/78
--- NOTE | 2019-10-17 15:46 | Emergency Department Report ---
Suture/Staple Removal - [facility] Chief Complaint: Skin/Abscess/Foreign Body Stated Complaint: PACKING CHANGED Time Seen by Provider: 10/17/19 15:43 When Sutures or Shruti Placed: 2 days Wound Location: right breast area ED Review of Systems ROS: Stated complaint: PACKING CHANGED Other details as noted in HPI Constitutional: denies: chills, fever Eyes: denies: eye pain, eye discharge, vision change ENT: denies: ear pain, throat pain Respiratory: denies: cough, shortness of breath, wheezing Cardiovascular: denies: chest pain, palpitations Endocrine: no symptoms reported Gastrointestinal: denies: abdominal pain, nausea, diarrhea Genitourinary: denies: urgency, dysuria, discharge Musculoskeletal: denies: back pain, joint swelling, arthralgia Skin: denies: rash, lesions Neurological: denies: headache, weakness, paresthesias Psychiatric: denies: anxiety, depression Hematological/Lymphatic: denies: easy bleeding, easy bruising ED Past Medical Hx - Past Medical History Hx Hypertension: Yes Hx CVA: Yes (2009) Hx Diabetes: Yes (diet controlled) Hx Headaches / Migraines: Yes Hx Seizures: Yes Hx Psychiatric Treatment: Yes (BIPOLAR) - Surgical History Hx Cholecystectomy: Yes Additional Surgical History: ,TUBAL LIGATION - Social History Smoking Status: Never Smoker Substance Use Type: None - Medications Home Medications: Home Medications Medication Instructions Recorded Confirmed Last Taken Type Divalproex [Matthew Ortiz] 1,000 mg PO QHS #30 tablet 11/13/13 04/20/14 1 Rx atenoloL [Tenormin] 25 mg PO DAILY #30 tab 11/13/13 04/20/14 04/19/14 Rx SUMAtriptan SUCCINATE [Imitrex] 25 mg PO Q6H PRN #30 tab 11/24/13 04/20/14 03/30/14 Rx Cyclobenzaprine [Flexeril 10mg] 10 mg PO TID PRN #20 tablet 04/20/14 Unknown Rx Penicillin Vk [Veetids TAB] 500 mg PO QID #40 tablet 08/14/14 Unknown Rx traMADoL [Ultram 50 MG tab] 50 mg PO Q6HR PRN #20 tablet 08/14/14 Unknown Rx Nitrofurantoin [place]/M-Cryst 100 mg PO Q12HR #14 capsule 01/16/17 Unknown Rx [Macrobid CAP] metroNIDAZOLE [Flagyl] 500 mg PO Q12HR #14 tab 01/16/17 Unknown Rx traMADoL [Ultram 50 MG tab] 50 mg PO Q6H PRN #8 tablet 01/16/17 Unknown Rx DOXYCYCLINE Hyclate [Vibramycin 100 mg PO Q12HR 7 Days #14 capsule 05/03/18 Unknown Rx CAP] metroNIDAZOLE [Flagyl] 500 mg PO Q12HR 7 Days #14 tab 05/03/18 Unknown Rx traMADoL [Ultram 50 MG tab] 50 mg PO Q6HR PRN #12 tablet 05/03/18 Unknown Rx Furosemide [Lasix] 20 mg PO QDAY #7 tablet 09/26/19 Unknown Rx Ondansetron [Zofran Odt] 4 mg PO Q8HR PRN #14 tab.rapdis 09/26/19 Unknown Rx Potassium Chloride [K-Dur] 10 meq PO QDAY #7 tablet 09/26/19 Unknown Rx traMADoL [Ultram 50 MG tab] 50 mg PO Q4HR PRN #7 tablet 09/26/19 Unknown Rx Clindamycin [Clindamycin CAP] 300 mg PO Q8H #30 cap 10/15/19 Unknown Rx traMADoL [Ultram] 50 mg PO Q6HR PRN #12 tablet 10/15/19 Unknown Rx Suture Removal Exam - Exam General: Vital signs noted. No distress. Alert and acting appropriately. Wound: No Pathologic Erythema, No Tenderness, No Drainage, No Pus, No Wound Dehiscence Other Systems: All other systems reviewed and are unremarkable. ED Course Vital Signs 10/17/19 10/17/19 15:19 15:20 Temperature 98.4 F Pulse Rate 91 H Respiratory 18 Rate Blood Pressure 144/78 O2 Sat by Pulse 99 Oximetry - Reevaluation(s) Reevaluation #1: 10/17/19 15:46 Patient is speaking in full sentences with no signs of distress noted. ED Recheck MDM - Medical Decision Making 1./ packing removed with Iliana BUTTS as chaporne. Patient tolerated well. Well healing. Patient was instructed to Follow-up with a primary care doctor in 3-5 days or if symptoms worsen and continue return to emergency room as soon as possible. At time of discharge, the patient does not seem toxic or ill in appearance. No acute signs of distress noted. Patient agrees to discharge treatment plan of care. No further questions noted by the patient. Critical care attestation.: If time is entered above; I have spent that time in minutes in the direct care of this critically ill patient, excluding procedure time. ED Disposition Clinical Impression: Encounter for abscess packing removal Disposition: TO HOME OR SELFCARE Is pt being admited?: No Does the pt Need Aspirin: No Condition: Stable Additional Instructions: Follow-up with a primary care doctor in 3-5 days or if symptoms worsen and continue return to emergency room as soon as possible. Referrals: PRIMARY MD EVERETT [Referring] - 3-5 Days PRASHANT AGUSTIN MD [Staff Physician] - 3-5 Days
== END 2019-10-17 16:08 | disposition home or self-care (01) ==
LOC: ED 15:06
DX: N61.1 Abscess of the breast and nipple (principal); Z48.00 Encounter for change or removal of nonsurgical wound dressing; E11.9 Type 2 diabetes mellitus without complications; G43.909 Migraine, unspecified, not intractable, without status migrainosus; R56.9 Unspecified convulsions; I10 Essential (primary) hypertension; F31.9 Bipolar disorder, unspecified; Z86.73 Personal history of transient ischemic attack (TIA), and cerebral infarction without residual deficits; Z98.51 Tubal ligation status; Z98.890 Other specified postprocedural states; Z79.899 Other long term (current) drug therapy; Z88.8 Allergy status to other drugs, medicaments and biological substances
CPT/HCPCS: 99282

== ENCOUNTER 2020-11-11 10:27 | Emergency (ER) | payer MEDICAID ==
[2020-11-11 11:02] VITALS: BP 152/99
--- NOTE | 2020-11-11 12:07 | Emergency Department Report ---
ED ENT HPI - General Chief complaint: Dental/Oral Stated complaint: SEVERE PAIN IN MOUTH/KNOTS IN BACK OF MOUTH Time Seen by Provider: 11/11/20 11:36 Source: patient Mode of arrival: Ambulatory Limitations: No Limitations - History of Present Illness Initial comments: 40-year-old female complaining of gum pain x4 days states she is using [id number] medicine with no relief. She denies any fever any difficulty chewing or swallowing. Patient is in no acute distress MD complaint: tooth pain (gum pain and swelling) - Related Data Previous Rx's Medication Instructions Recorded Last Taken Type Divalproex Dr [Depakote Dr] 1,000 mg PO QHS #30 tablet 11/13/13 04/19/14 Rx atenoloL [Tenormin] 25 mg PO DAILY #30 tab 11/13/13 04/19/14 Rx SUMAtriptan SUCCINATE [Imitrex] 25 mg PO Q6H PRN #30 tab 11/24/13 03/30/14 Rx Cyclobenzaprine [Flexeril 10mg] 10 mg PO TID PRN #20 tablet 04/20/14 Unknown Rx Penicillin Vk [Veetids TAB] 500 mg PO QID #40 tablet 08/14/14 Unknown Rx traMADoL [Ultram 50 MG tab] 50 mg PO Q6HR PRN #20 tablet 08/14/14 Unknown Rx Nitrofurantoin [place]/M-Cryst 100 mg PO Q12HR #14 capsule 01/16/17 Unknown Rx [Macrobid CAP] metroNIDAZOLE [Flagyl] 500 mg PO Q12HR #14 tab 01/16/17 Unknown Rx traMADoL [Ultram 50 MG tab] 50 mg PO Q6H PRN #8 tablet 01/16/17 Unknown Rx DOXYCYCLINE Hyclate [Vibramycin 100 mg PO Q12HR 7 Days #14 capsule 05/03/18 Unknown Rx CAP] metroNIDAZOLE [Flagyl] 500 mg PO Q12HR 7 Days #14 tab 05/03/18 Unknown Rx traMADoL [Ultram 50 MG tab] 50 mg PO Q6HR PRN #12 tablet 05/03/18 Unknown Rx Furosemide [Lasix] 20 mg PO QDAY #7 tablet 09/26/19 Unknown Rx Ondansetron [Zofran Odt] 4 mg PO Q8HR PRN #14 tab.rapdis 09/26/19 Unknown Rx Potassium Chloride [K-Dur] 10 meq PO QDAY #7 tablet 09/26/19 Unknown Rx traMADoL [Ultram 50 MG tab] 50 mg PO Q4HR PRN #7 tablet 09/26/19 Unknown Rx Clindamycin [Clindamycin CAP] 300 mg PO Q8H #30 cap 10/15/19 Unknown Rx traMADoL [Ultram] 50 mg PO Q6HR PRN #12 tablet 10/15/19 Unknown Rx Acetaminophen [Tylenol] 500 mg PO Q6HR PRN #30 tablet 11/29/19 Unknown Rx tiZANidine [Zanaflex 4mg TAB] 4 mg PO Q12H PRN #20 tablet 11/29/19 Unknown Rx Acetaminophen/Codeine [Tylenol 1 tab PO Q6H PRN #12 tab 11/11/20 Unknown Rx /Codeine # 3 tab] Clindamycin [Clindamycin CAP] 300 mg PO Q8H #21 cap 11/11/20 Unknown Rx Allergies Allergy/AdvReac Type Severity Reaction Status Date / Time ibuprofen [From Motrin] Allergy Unknown Verified 10/17/19 15:17 naproxen [From Naprosyn] Allergy Unknown Verified 10/17/19 15:17 NSAIDS (Non-Steroidal AdvReac Unknown Verified 10/17/19 15:17 Anti-Inflamma ED Dental HPI - General Chief complaint: Dental/Oral Stated complaint: SEVERE PAIN IN MOUTH/KNOTS IN BACK OF MOUTH Time Seen by Provider: 11/11/20 11:36 Source: patient Mode of arrival: Ambulatory Limitations: No Limitations - Related Data Previous Rx's Medication Instructions Recorded Last Taken Type Divalproex [Matthew Ortiz] 1,000 mg PO QHS #30 tablet 11/13/13 04/19/14 Rx atenoloL [Tenormin] 25 mg PO DAILY #30 tab 11/13/13 04/19/14 Rx SUMAtriptan SUCCINATE [Imitrex] 25 mg PO Q6H PRN #30 tab 11/24/13 03/30/14 Rx Cyclobenzaprine [Flexeril 10mg] 10 mg PO TID PRN #20 tablet 04/20/14 Unknown Rx Penicillin Vk [Veetids TAB] 500 mg PO QID #40 tablet 08/14/14 Unknown Rx traMADoL [Ultram 50 MG tab] 50 mg PO Q6HR PRN #20 tablet 08/14/14 Unknown Rx Nitrofurantoin [place]/M-Cryst 100 mg PO Q12HR #14 capsule 01/16/17 Unknown Rx [Macrobid CAP] metroNIDAZOLE [Flagyl] 500 mg PO Q12HR #14 tab 01/16/17 Unknown Rx traMADoL [Ultram 50 MG tab] 50 mg PO Q6H PRN #8 tablet 01/16/17 Unknown Rx DOXYCYCLINE Hyclate [Vibramycin 100 mg PO Q12HR 7 Days #14 capsule 05/03/18 Unknown Rx CAP] metroNIDAZOLE [Flagyl] 500 mg PO Q12HR 7 Days #14 tab 05/03/18 Unknown Rx traMADoL [Ultram 50 MG tab] 50 mg PO Q6HR PRN #12 tablet 05/03/18 Unknown Rx Furosemide [Lasix] 20 mg PO QDAY #7 tablet 09/26/19 Unknown Rx Ondansetron [Zofran Odt] 4 mg PO Q8HR PRN #14 tab.rapdis 09/26/19 Unknown Rx Potassium Chloride [K-Dur] 10 meq PO QDAY #7 tablet 09/26/19 Unknown Rx traMADoL [Ultram 50 MG tab] 50 mg PO Q4HR PRN #7 tablet 09/26/19 Unknown Rx Clindamycin [Clindamycin CAP] 300 mg PO Q8H #30 cap 10/15/19 Unknown Rx traMADoL [Ultram] 50 mg PO Q6HR PRN #12 tablet 10/15/19 Unknown Rx Acetaminophen [Tylenol] 500 mg PO Q6HR PRN #30 tablet 11/29/19 Unknown Rx tiZANidine [Zanaflex 4mg TAB] 4 mg PO Q12H PRN #20 tablet 11/29/19 Unknown Rx Acetaminophen/Codeine [Tylenol 1 tab PO Q6H PRN #12 tab 11/11/20 Unknown Rx /Codeine # 3 tab] Clindamycin [Clindamycin CAP] 300 mg PO Q8H #21 cap 11/11/20 Unknown Rx Allergies Allergy/AdvReac Type Severity Reaction Status Date / Time ibuprofen [From Motrin] Allergy Unknown Verified 10/17/19 15:17 naproxen [From Naprosyn] Allergy Unknown Verified 10/17/19 15:17 NSAIDS (Non-Steroidal AdvReac Unknown Verified 10/17/19 15:17 Anti-Inflamma ED Review of Systems ROS: Stated complaint: SEVERE PAIN IN MOUTH/KNOTS IN BACK OF MOUTH Other details as noted in HPI ED Past Medical Hx - Past Medical History Hx Hypertension: Yes Hx CVA: Yes (2009) Hx Diabetes: Yes (diet controlled) Hx Headaches / Migraines: Yes Hx Seizures: Yes Hx Psychiatric Treatment: Yes (BIPOLAR) - Surgical History Hx Cholecystectomy: Yes Additional Surgical History: ,TUBAL LIGATION - Social History Smoking Status: Former Smoker - Medications Home Medications: Home Medications Medication Instructions Recorded Confirmed Last Taken Type Divalproex [Matthew Ortiz] 1,000 mg PO QHS #30 tablet 11/13/13 04/20/14 04/19/14 Rx atenoloL [Tenormin] 25 mg PO DAILY #30 tab 11/13/13 04/20/14 04/19/14 Rx SUMAtriptan SUCCINATE [Imitrex] 25 mg PO Q6H PRN #30 tab 11/24/13 04/20/14 03/30/14 Rx Cyclobenzaprine [Flexeril 10mg] 10 mg PO TID PRN #20 tablet 04/20/14 Unknown Rx Penicillin Vk [Veetids TAB] 500 mg PO QID #40 tablet 08/14/14 Unknown Rx traMADoL [Ultram 50 MG tab] 50 mg PO Q6HR PRN #20 tablet 08/14/14 Unknown Rx Nitrofurantoin [place]/M-Cryst 100 mg PO Q12HR #14 capsule 01/16/17 Unknown Rx [Macrobid CAP] metroNIDAZOLE [Flagyl] 500 mg PO Q12HR #14 tab 01/16/17 Unknown Rx traMADoL [Ultram 50 MG tab] 50 mg PO Q6H PRN #8 tablet 01/16/17 Unknown Rx DOXYCYCLINE Hyclate [Vibramycin 100 mg PO Q12HR 7 Days #14 capsule 05/03/18 Unknown Rx CAP] metroNIDAZOLE [Flagyl] 500 mg PO Q12HR 7 Days #14 tab 05/03/18 Unknown Rx traMADoL [Ultram 50 MG tab] 50 mg PO Q6HR PRN #12 tablet 05/03/18 Unknown Rx Furosemide [Lasix] 20 mg PO QDAY #7 tablet 09/26/19 Unknown Rx Ondansetron [Zofran Odt] 4 mg PO Q8HR PRN #14 tab.rapdis 09/26/19 Unknown Rx Potassium Chloride [K-Dur] 10 meq PO QDAY #7 tablet 09/26/19 Unknown Rx traMADoL [Ultram 50 MG tab] 50 mg PO Q4HR PRN #7 tablet 09/26/19 Unknown Rx Clindamycin [Clindamycin CAP] 300 mg PO Q8H #30 cap 10/15/19 Unknown Rx traMADoL [Ultram] 50 mg PO Q6HR PRN #12 tablet 10/15/19 Unknown Rx Acetaminophen [Tylenol] 500 mg PO Q6HR PRN #30 tablet 11/29/19 Unknown Rx tiZANidine [Zanaflex 4mg TAB] 4 mg PO Q12H PRN #20 tablet 11/29/19 Unknown Rx Acetaminophen/Codeine [Tylenol 1 tab PO Q6H PRN #12 tab 11/11/20 Unknown Rx /Codeine # 3 tab] Clindamycin [Clindamycin CAP] 300 mg PO Q8H #21 cap 11/11/20 Unknown Rx ED Physical Exam - General Limitations: No Limitations, Language Barrier General appearance: alert, in no apparent distress - Head Head exam: Present: atraumatic - Eye Eye exam: Present: normal appearance - ENT ENT exam: Present: mucous membranes moist, TM's normal bilaterally, other (tooth # 30,31 32 absent, gum is swollen and tender to touch. Patient is able to open mouth fully no facial swelling) - Neck Neck exam: Present: normal inspection, full ROM - Respiratory Respiratory exam: Present: normal lung sounds bilaterally. Absent: respiratory distress, wheezes, rales, rhonchi - Cardiovascular Cardiovascular Exam: Present: regular rate, normal heart sounds - Extremities Exam Extremities exam: Present: normal inspection - Neurological Exam Neurological exam: Present: alert, oriented X3 - Psychiatric Psychiatric exam: Present: anxious - Skin Skin exam: Present: warm, dry, intact, normal color. Absent: rash ED Course Vital Signs 11/11/20 10:59 Temperature 99.1 F Pulse Rate 101 H Respiratory 20 Rate Blood Pressure 152/99 O2 Sat by Pulse 95 Oximetry - Reevaluation(s) Reevaluation #1: 11/11/20 ED Medical Decision Making - Medical Decision Making 40-year-old female with right lower mandibular arch gum swelling and tenderness no erythema. No facial swelling noted. Discharge home with pain management and antibiotics and follow-up with dentist soon as possible Critical Care Time: No Critical care attestation.: If time is entered above; I have spent that time in minutes in the direct care of this critically ill patient, excluding procedure time. ED Disposition Clinical Impression: Gum abscess Disposition: TO HOME OR SELFCARE Is pt being admited?: No Does the pt Need Aspirin: No Condition: Stable Instructions: Preventive Dental Care, Adult Additional Instructions: Warm salt water gargles 3 times a day. Follow-up with dentist as soon as possible. Take antibiotic until finished return to the emergency room for any jaw swelling difficulty swallowing or difficulty opening your mouth. Prescriptions: Clindamycin [Clindamycin CAP] 300 mg PO Q8H #21 cap Acetaminophen/Codeine [Tylenol /Codeine # 3 tab] 1 tab PO Q6H PRN #12 tab PRN Reason: Pain , Severe (7-10) Referrals: PRIMARY CARE, [Primary Care Provider] - 3-5 Days [facility] [Outside] - 3-5 Days [facility] [Outside] - 3-5 Days Time of Disposition: 12:06
== END 2020-11-11 12:43 | disposition home or self-care (01) ==
LOC: ED 10:27
DX: K05.319 Chronic periodontitis, localized, unspecified severity (principal); I10 Essential (primary) hypertension; E11.9 Type 2 diabetes mellitus without complications; F31.9 Bipolar disorder, unspecified; F17.200 Nicotine dependence, unspecified, uncomplicated; Z88.6 Allergy status to analgesic agent; Z88.8 Allergy status to other drugs, medicaments and biological substances; Z79.899 Other long term (current) drug therapy
CPT/HCPCS: 99281

== ENCOUNTER 2020-12-09 11:25 | Emergency (ER) | payer MEDICAID ==
[2020-12-09 13:00] VITALS: BP 163/104
--- NOTE | 2020-12-09 14:39 | Emergency Department Report ---
ED General Adult HPI - General Chief complaint: Dental/Oral Stated complaint: ABSCESS IN MOUTH Time Seen by Provider: 12/09/20 14:28 Source: patient Mode of arrival: Ambulatory Limitations: No Limitations - History of Present Illness Initial comments: 40-year-old female patient with history of diabetes and hypertension presents to the emergency department with complaints of dental pain starting approximately 1 month ago. Patient was evaluated in the emergency department 4 days following onset of her symptoms. She was prescribed Penicillin and referred to a dentist for close outpatient follow-up. Patient states she took the antibiotics as directed. Completed her course of antibiotics approximately week and a half ago. Her dentist appointment is scheduled for 12/19/20. Pain and swelling worsened last week. She has been taking Tylenol with limited relief. Denies fever, chills, dysphagia, shortness of breath, hoarseness. Denies all other complaints at this time. Severity scale (0 -10): 10 - Related Data Previous Rx's Medication Instructions Recorded Last Taken Type Divalproex Dr [Depakote Dr] 1,000 mg PO QHS #30 tablet 11/13/13 04/19/14 Rx atenoloL [Tenormin] 25 mg PO DAILY #30 tab 11/13/13 04/19/14 Rx SUMAtriptan SUCCINATE [Imitrex] 25 mg PO Q6H PRN #30 tab 11/24/13 03/30/14 Rx Cyclobenzaprine [Flexeril 10mg] 10 mg PO TID PRN #20 tablet 04/20/14 Unknown Rx Penicillin Vk [Veetids TAB] 500 mg PO QID #40 tablet 08/14/14 Unknown Rx traMADoL [Ultram 50 MG tab] 50 mg PO Q6HR PRN #20 tablet 08/14/14 Unknown Rx Nitrofurantoin Banner/M-Cryst 100 mg PO Q12HR #14 capsule 01/16/17 Unknown Rx [Macrobid CAP] metroNIDAZOLE [Flagyl] 500 mg PO Q12HR #14 tab 01/16/17 Unknown Rx traMADoL [Ultram 50 MG tab] 50 mg PO Q6H PRN #8 tablet 01/16/17 Unknown Rx DOXYCYCLINE Hyclate [Vibramycin 100 mg PO Q12HR 7 Days #14 capsule 05/03/18 Unknown Rx CAP] metroNIDAZOLE [Flagyl] 500 mg PO Q12HR 7 Days #14 tab 05/03/18 Unknown Rx traMADoL [Ultram 50 MG tab] 50 mg PO Q6HR PRN #12 tablet 05/03/18 Unknown Rx Furosemide [Lasix] 20 mg PO QDAY #7 tablet 09/26/19 Unknown Rx Ondansetron [Zofran Odt] 4 mg PO Q8HR PRN #14 tab.rapdis 09/26/19 Unknown Rx Potassium Chloride [K-Dur] 10 meq PO QDAY #7 tablet 09/26/19 Unknown Rx traMADoL [Ultram 50 MG tab] 50 mg PO Q4HR PRN #7 tablet 09/26/19 Unknown Rx Clindamycin [Clindamycin CAP] 300 mg PO Q8H #30 cap 10/15/19 Unknown Rx traMADoL [Ultram] 50 mg PO Q6HR PRN #12 tablet 10/15/19 Unknown Rx Acetaminophen [Tylenol] 500 mg PO Q6HR PRN #30 tablet 11/29/19 Unknown Rx tiZANidine [Zanaflex 4mg TAB] 4 mg PO Q12H PRN #20 tablet 11/29/19 Unknown Rx Acetaminophen/Codeine [Tylenol 1 tab PO Q6H PRN #12 tab 11/11/20 Unknown Rx /Codeine # 3 tab] Clindamycin [Clindamycin CAP] 300 mg PO Q8H #21 cap 11/11/20 Unknown Rx Clindamycin [Clindamycin CAP] 450 mg PO TID 7 Days capsule 12/09/20 Unknown Rx Nystas/Diphen/Xyl Visc/Mylanta 30 ml MM Q4H PRN #1 bottle 12/09/20 Unknown Rx [Magic Mouthwash] Allergies Allergy/AdvReac Type Severity Reaction Status Date / Time ibuprofen [From Motrin] Allergy Unknown Verified 10/17/19 15:17 naproxen [From Naprosyn] Allergy Unknown Verified 10/17/19 15:17 NSAIDS (Non-Steroidal AdvReac Unknown Verified 10/17/19 15:17 Anti-Inflamma ED Review of Systems ROS: Stated complaint: ABSCESS IN MOUTH Other details as noted in HPI Other: GENERAL: Negative for fever, chills, weight change, anorexia, fatigue. ENT: Positive for dental pain. CARDIOVASCULAR: Negative for chest pain, palpitations, lower extremity swelling. PULMONARY: Negative for cough, dyspnea, wheezing, orthopnea, cyanosis. GASTROINTESTINAL: Negative for abdominal pain, nausea, vomiting, diarrhea, constipation. MUSCULOSKELETAL: Negative for joint pain, joint swelling, myalgias, back pain, neck pain. NEUROLOGICAL: Negative for headache, seizure, syncope, paresthesias, weakness. INTEGUMENTARY: Negative for erythema, rash, diaphoresis, laceration, ecchymosis. HEMATOLOGICAL: Negative for hemoptysis, hematemesis, hematochezia, hematuria. PSYCHIATRIC: Negative for hallucinations, suicidal ideation, homicidal ideation, anxiety, depression. ED Past Medical Hx - Past Medical History Previous Medical History?: Yes Hx Hypertension: Yes Hx CVA: Yes (2009) Hx Diabetes: Yes (diet controlled) Hx Headaches / Migraines: Yes Hx Seizures: Yes Hx Psychiatric Treatment: Yes (BIPOLAR) - Surgical History Past Surgical History?: Yes Hx Cholecystectomy: Yes Additional Surgical History: ,TUBAL LIGATION - Social History Smoking Status: Former Smoker - Medications Home Medications: Home Medications Medication Instructions Recorded Confirmed Last Taken Type Divalproex [Matthew Ortiz] 1,000 mg PO QHS #30 tablet 11/13/13 04/20/14 04/19/14 Rx atenoloL [Tenormin] 25 mg PO DAILY #30 tab 11/13/13 04/20/14 04/19/14 Rx SUMAtriptan SUCCINATE [Imitrex] 25 mg PO Q6H PRN #30 tab 11/24/13 04/20/14 03/30/14 Rx Cyclobenzaprine [Flexeril 10mg] 10 mg PO TID PRN #20 tablet 04/20/14 Unknown Rx Penicillin Vk [Veetids TAB] 500 mg PO QID #40 tablet 08/14/14 Unknown Rx traMADoL [Ultram 50 MG tab] 50 mg PO Q6HR PRN #20 tablet 08/14/14 Unknown Rx Nitrofurantoin Banner/M-Cryst 100 mg PO Q12HR #14 capsule 01/16/17 Unknown Rx [Macrobid CAP] metroNIDAZOLE [Flagyl] 500 mg PO Q12HR #14 tab 01/16/17 Unknown Rx traMADoL [Ultram 50 MG tab] 50 mg PO Q6H PRN #8 tablet 01/16/17 Unknown Rx DOXYCYCLINE Hyclate [Vibramycin 100 mg PO Q12HR 7 Days #14 capsule 05/03/18 Unknown Rx CAP] metroNIDAZOLE [Flagyl] 500 mg PO Q12HR 7 Days #14 tab 05/03/18 Unknown Rx traMADoL [Ultram 50 MG tab] 50 mg PO Q6HR PRN #12 tablet 05/03/18 Unknown Rx Furosemide [Lasix] 20 mg PO QDAY #7 tablet 09/26/19 Unknown Rx Ondansetron [Zofran Odt] 4 mg PO Q8HR PRN #14 tab.rapdis 09/26/19 Unknown Rx Potassium Chloride [K-Dur] 10 meq PO QDAY #7 tablet 09/26/19 Unknown Rx traMADoL [Ultram 50 MG tab] 50 mg PO Q4HR PRN #7 tablet 09/26/19 Unknown Rx Clindamycin [Clindamycin CAP] 300 mg PO Q8H #30 cap 10/15/19 Unknown Rx traMADoL [Ultram] 50 mg PO Q6HR PRN #12 tablet 10/15/19 Unknown Rx Acetaminophen [Tylenol] 500 mg PO Q6HR PRN #30 tablet 11/29/19 Unknown Rx tiZANidine [Zanaflex 4mg TAB] 4 mg PO Q12H PRN #20 tablet 11/29/19 Unknown Rx Acetaminophen/Codeine [Tylenol 1 tab PO Q6H PRN #12 tab 11/11/20 Unknown Rx /Codeine # 3 tab] Clindamycin [Clindamycin CAP] 300 mg PO Q8H #21 cap 11/11/20 Unknown Rx Clindamycin [Clindamycin CAP] 450 mg PO TID 7 Days capsule 12/09/20 Unknown Rx Nystas/Diphen/Xyl Visc/Mylanta 30 ml MM Q4H PRN #1 bottle 12/09/20 Unknown Rx [Magic Mouthwash] ED Physical Exam - General Limitations: No Limitations - Other Other exam information: General: Awake, appropriately interactive, no acute distress. Dental: Oral mucosa is moist. The gingiva surrounding the right lower molar appears swollen and inflammed without fluctuance or evidence of periapical abscess. Sublingual, submental, and submandibular spaces all soft, without edema. No evidence for maxillary or buccal space abscess. No trismus. Patient is speaking in full sentences and handling secretions without difficulty. No hoarseness. Neck: Supple. Full range of motion intact. Cardiovascular: Normal peripheral perfusion. Pulmonary: No respiratory distress. Patient is speaking normally without use of accessory muscles. Skin: No apparent rashes or lesions. Neurological: No facial asymmetry. Speech is clear. Follows commands. Patient is alert and oriented. Musculoskeletal: Moves all four extremities spontaneously with normal range of motion. Psych: Cooperative. Appropriate mood and affect. ED Course Vital Signs 12/09/20 12:59 Temperature 97.8 F Pulse Rate 69 Respiratory 18 Rate Blood Pressure 163/104 [Right] O2 Sat by Pulse 99 Oximetry ED Medical Decision Making - Medical Decision Making Differential diagnosis including but not limited to: dental abscess, Ziyad's angina, necrotizing gingivitis, dental caries Patient presents to the emergency department with complaints of ongoing dental pain for over 1 month. She was previously treated with antibiotics. She has been having difficulty arranging for follow-up with dentist. She is scheduled to see the dentist next week. She is afebrile, hemodynamically stable, tolerating oral intake, speaking and swallowing without difficulty, no trismus, no voice changes. No clinical evidence to suggest airway obstruction and/or systemic infection warranting further diagnostic work-up and/or administration of IV antibiotics on an emergent basis. Patient will be discharged home with prescription for Clindamycin (was recently on Penicillin) as well as appropriate analgesics. Emphasized the importance of calling the dentist office this week to expedite her follow-up appointment. Referred to multiple dentists and encouraged to call other offices in order to to expedite follow-up. Patient expressed understanding and is agreeable to plan of care. Strict return precautions provided. History, exam, diagnostic testing, and current condition do not suggest worrisome pathology to warrant further testing, continued ED treatment, a dmission, or surgical evaluation at this point. Given the low probability of a significant medical illness, it would be more likely to result in harm than benefit to perform further testing at this stage. Discussed findings, presumptive diagnosis, need for follow-up and specific signs/symptoms that should prompt immediate return to the emergency department. Instructions were explained in detail to the patient in addition to giving written discharge information. Patient expressed understanding and was given the opportunity to ask questions, all of which were satisfactorily answered prior to discharge home. Critical care attestation.: If time is entered above; I have spent that time in minutes in the direct care of this critically ill patient, excluding procedure time. ED Disposition Clinical Impression: Dental infection Disposition: HOME / SELF CARE / HOMELESS Is pt being admited?: No Does the pt Need Aspirin: No Condition: Stable Instructions: Preventive Dental Care, Adult Additional Instructions: Take Tylenol every 4 hours as needed for pain. Use Magic Mouthwash as directed for pain. Take Clindamycin with food as directed for dental infection. Increase your dietary intake of probiotic rich foods while taking this medication. Avoid extremely hot/extremely cold foods and fluids, which may worsen your symptoms. You must follow-up with a dentist for definitive management of ongoing dental issues. Call Friday for appointment. Return to the emergency department immediately for new or worsening symptoms. Specifically, return to the emergency department immediately for fever, difficulty swallowing, difficulty speaking, difficulty breathing, rash, worsening pain/swelling, or any other concerns. Prescriptions: Clindamycin [Clindamycin CAP] 450 mg PO TID 7 Days capsule Nystas/Diphen/Xyl Visc/Mylanta [Magic Mouthwash] 30 ml MM Q4H PRN #1 bottle PRN Reason: Mouth Pain Referrals: [facility] [Outside] - 3-5 Days [facility] [Outside] - 3-5 Days Time of Disposition: 14:47
== END 2020-12-12 00:46 | disposition home or self-care (01) ==
LOC: ED 11:25
DX: K04.7 Periapical abscess without sinus (principal); I10 Essential (primary) hypertension; E11.8 Type 2 diabetes mellitus with unspecified complications; I63.9 Cerebral infarction, unspecified; G43.909 Migraine, unspecified, not intractable, without status migrainosus; R56.9 Unspecified convulsions; F31.9 Bipolar disorder, unspecified; Z98.890 Other specified postprocedural states; Z87.891 Personal history of nicotine dependence; Z88.6 Allergy status to analgesic agent
CPT/HCPCS: 99281